=== PATIENT | male | born 1960 | race African-American/Black ===

== ENCOUNTER → 2017-12-01 | Outpatient (CLI) | payer BC ==
--- NOTE | 2017-12-01 17:56 | Diagnostic Imaging Report ---
PROCEDURE: Frontal and lateral views of the chest. COMPARISON: Patients [facility], , CHEST 2 VIEWS, 07/16/2015, 14:11. INDICATIONS: CHESTA PAIN FINDINGS: Lines/tubes: None. Lungs: The lungs are well inflated and clear. There is no evidence of pneumonia or pulmonary edema. Pleura: There is no pleural effusion or pneumothorax. Heart and mediastinum: Stable borderline enlargement of the cardiac silhouette. Pulmonary vasculature is normal. Bones: No acute bony abnormality. IMPRESSION: 1. No acute cardiopulmonary abnormalities. Senthil Truong M.D. Dictated by: Senthil Truong M.D. on 12/01/2017 at 18:06 Electronically approved by: Senthil Truong M.D. on 12/01/2017 at 18:06
== END ==
LOC: RAD 16:10
PROVIDERS: ATTEND Family Medicine
DX: R07.9 Chest pain, unspecified (principal)
CPT/HCPCS: 71046